=== PATIENT | female | born 1990 | race Caucasian/White ===

== ENCOUNTER 2017-03-06 20:52 | Observation (INO) | payer MEDICAID ==
[~2017-03-06] VITALS: Ht 160 cm; Wt 72.1 kg
[2017-03-06] MEDS ORDERED: PREN-88 PO (21:34)
[2017-03-06] MEDS ORDERED: IRON-1 PO (21:34)
== END 2017-03-06 23:40 | disposition home or self-care (01) ==
LOC: L&D 20:52
PROVIDERS: ADMIT Obstetrics & Gynecology; ATTEND Obstetrics & Gynecology
DX: O42.92 Full-term premature rupture of membranes, unspecified as to length of time between rupture and onset of labor (principal); O62.9 Abnormality of forces of labor, unspecified; O26.893 Other specified pregnancy related conditions, third trimester; R10.30 Lower abdominal pain, unspecified; Z3A.39 39 weeks gestation of pregnancy
CPT/HCPCS: G0378; J7120

== ENCOUNTER 2024-08-11 07:49 | Emergency (ER) | payer MEDICAID, OTHER ==
[~2024-08-11] VITALS: Ht 157.5 cm; Wt 64.0 kg
[~2024-08-11 07:49] MED LIST: IRON-1 PO; PREN-88 PO
[2024-08-11 07:55] VITALS: O2SAT 98
[2024-08-11 07:59] VITALS: BP 108/66; PULSE 89; RESP 16; TEMP 97.9; O2SAT 98
[2024-08-11 09:15] LABS: CHLORIDE 103 mEq/L (98-107); POTASSIUM 3.1 mEq/L (3.5-5.1); SODIUM 136 mEq/L (136-145)
[2024-08-11 09:16] LABS: CARBON DIOXIDE 25 mEq/L (21-32)
[2024-08-11 09:17] LABS: CALCIUM 9.1 mg/dL (8.7-10.4)
[2024-08-11 09:17] LABS: CLARITY URINE CLOUDY (CLEAR); COLOR URINE DARK YELLOW (YELLOW); GLUCOSE URINE NEGATIVE (NEGATIVE); KETONES URINE TRACE (NEGATIVE); LEUKOCYTE ESTERASE URINE 2+ (NEGATIVE); NITRITE URINE NEGATIVE (NEGATIVE); OCCULT BLOOD URINE NEGATIVE (NEGATIVE); PH URINE 5.5 (4.5-8.0); PROTEIN URINE TRACE (NEGATIVE); SPECIFIC GRAVITY URINE 1.019 (1.005-1.030)
[2024-08-11 09:21] LABS: CREATININE 0.5 mg/dL (0.6-1.0); GLUCOSE 96 mg/dL (70-105); UREA NITROGEN BLOOD 6 mg/dL (9-23)
[2024-08-11 09:31] LABS: BASOPHILS % 0.9 % (0.0-2.0); DIFFERENTIAL COMMENT 0; EOSINOPHILS % 0.6 % (0.0-5.0); HEMATOCRIT. 36.4 % (36.0-48.0); HEMOGLOBIN. 11.8 g/dL (12.0-16.0); LYMPHOCYTES % 28.5 % (20.0-50.0); MEAN CORPUSCULAR HEMOGLOBIN 29.1 pg (28.0-32.0); MEAN CORPUSCULAR HGB CONC 32.4 g/dL (31.0-37.0); MEAN CORPUSCULAR VOLUME 89.9 fL (81.0-99.0); MEAN PLATELET VOLUME 8.2 fl (7.4-10.4); MONOCYTES % 5.9 % (2.0-8.0); NEUTROPHILS % 64.1 % (40.0-76.0); PLATELET 259 x1000/uL (130-400); RED BLOOD CELL COUNT 4.04 mill/uL (4.2-5.4); RED CELL DISTRIBUTION WIDTH 17.6 % (11.6-14.6); WHITE BLOOD COUNT 5.3 x1000/uL (4.5-11.0)
[2024-08-11 09:37] LABS: B-HCG QUANTITATIVE 66497 mIU/mL (<3)
[2024-08-11 09:48] LABS: BACTERIA URINE 2+; RBC URINE 0-2 /hpf (0-2); SQUAMOUS EPITHELIAL CELL URINE 3+ /lpf (RARE/1+); YEAST URINE NONE SEEN
[2024-08-11] MEDS ORDERED: ACET-2708 MT (12:01)
== END 2024-08-11 12:47 | disposition home or self-care (01) ==
LOC: ER 07:49
DX: O26.891 Other specified pregnancy related conditions, first trimester (principal); O99.891 Other specified diseases and conditions complicating pregnancy; Z3A.09 9 weeks gestation of pregnancy; Z79.899 Other long term (current) drug therapy
CPT/HCPCS: 36415; 76801; 80048; 81003; 81025; 84702; 85025; 86850; 86900; 99284

== ENCOUNTER 2024-08-27 17:22 | Emergency (ER) | payer MEDICAID, OTHER ==
[~2024-08-27] VITALS: Ht 165.1 cm; Wt 3.0 kg
[~2024-08-27 17:22] MED LIST changes: +ACET-2708 MT
[2024-08-27 17:28] VITALS: BP 114/60; PULSE 90; RESP 16; TEMP 98.4; O2SAT 100
== END 2024-08-27 19:08 | disposition left against medical advice (07) ==
LOC: ER 17:22
DX: O26.891 Other specified pregnancy related conditions, first trimester (principal); R10.9 Unspecified abdominal pain; Z3A.12 12 weeks gestation of pregnancy; V89.2XXA Person injured in unspecified motor-vehicle accident, traffic, initial encounter; Y92.410 Unspecified street and highway as the place of occurrence of the external cause; Y93.89 Activity, other specified; Y92.89 Other specified places as the place of occurrence of the external cause; Y99.8 Other external cause status
CPT/HCPCS: 99283

== ENCOUNTER 2025-06-24 22:18 | Emergency (ER) | payer MEDICAID, OTHER ==
[~2025-06-24] VITALS: Ht 157.5 cm; Wt 76.0 kg
[2025-06-24 22:42] VITALS: O2SAT 96
[2025-06-24] MEDS: LORAZEPAM 1MG TABLET PO ONE (23:39)
[2025-06-24] MEDS: ACETAMINOPHEN 325MG TABLET PO ONE (23:39)
[2025-06-24 23:52] LABS: BASOPHILS % 1.4 % (0.0-2.0); EOSINOPHILS % 0.7 % (0.0-5.0); HEMATOCRIT. 35.7 % (36.0-48.0); HEMOGLOBIN. 11.7 g/dL (12.0-16.0); LYMPHOCYTES % 38.5 % (20.0-50.0); MEAN PLATELET VOLUME 7.5 fl (7.4-10.4); MONOCYTES % 5.3 % (2.0-8.0); NEUTROPHILS % 54.1 % (40.0-76.0); PLATELET 446 x1000/uL (130-400); RED BLOOD CELL COUNT 4.09 mill/uL (4.2-5.4); RED CELL DISTRIBUTION WIDTH 14.4 % (11.6-14.6)
[2025-06-25 00:02] LABS: HCG SCREEN NEGATIVE
[2025-06-25 00:04] LABS: CREATININE 0.6 mg/dL (0.6-1.0)
[2025-06-25 00:05] LABS: UREA NITROGEN BLOOD 8 mg/dL (9-23)
[2025-06-25 00:07] LABS: TROPONIN I HIGH SENSITIVITY 5 ng/L (3.0-34)
[2025-06-25 00:33] VITALS: BP 126/85; PULSE 91; RESP 16; TEMP 36.7; O2SAT 98
== END 2025-06-25 00:40 | disposition home or self-care (01) ==
LOC: ER 22:18
DX: R07.89 Other chest pain (principal); R07.2 Precordial pain; Z79.899 Other long term (current) drug therapy
CPT/HCPCS: 36415; 71045; 80048; 84484; 84703; 85025; 93005; 99285